=== PATIENT | male | born 1960 | race Caucasian/White ===

== ENCOUNTER 2017-11-11 11:50 | Inpatient (IN) | payer OTHER ==
[~2017-11-11] VITALS: Ht 180.3 cm; Wt 110.7 kg
[2017-11-11 15:39] LABS: HEMATOCRIT 43.9 % (38.0-50.0); HEMOGLOBIN 15.2 G/DL (12.5-16.6); MCH 28.7 PG (29.0-34.0); MCHC 34.6 G/DL (30.0-36.0); MCV 82.8 FL (86-99); PLATELET COUNT 219 K/uL (156-360); RBC DIS.WIDTH-CV 12.5 % (11.8-14.6); RBC DIS.WIDTH-SD 37.7 % (39-53); WHITE BLOOD COUNT 13.9 K/uL (4.1-10.2)
[2017-11-11 15:49] LABS: CHLORIDE 105 mEq/L (99-109); POTASSIUM 3.6 mEq/L (3.7-5.4); SODIUM 140 mEq/L (136-147)
[2017-11-11 15:52] LABS: GLUCOSE 128 mg/dL (70-99); TOTAL PROTEIN 7.8 g/dL (6.4-8.3)
[2017-11-11 15:53] LABS: TOTAL BILIRUBIN 0.7 mg/dL (0.0-1.0)
[2017-11-11 15:54] LABS: SERUM ETHYL ALCOHOL < 10 mg/dL
[2017-11-11 15:55] LABS: ALKALINE PHOSPHATASE 57 IU/L (3-129); CREATININE 1.3 mg/dL (0.6-1.3); GFR ESTIMATE (CALCULATED) > 59 mL/min/ (58.99-99999)
[2017-11-11 15:56] LABS: APPEARANCE CLEAR ((CLEAR)); BILIRUBIN NEGATIVE; BLOOD MODERATE; COLOR YELLOW ((YELLOW)); GLUCOSE (STRIP) NEGATIVE; KETONES NEGATIVE; LEUKOCYTES NEGATIVE; NITRITE NEGATIVE; PROTEIN (STRIP) 100; SPECIFIC GRAVITY 1.018 (1.000-1.030); UROBILINOGEN 0.2 MG/DL (0.2-1.0)
[2017-11-11 15:56] LABS: UREA NITROGEN (BUN) 13 mg/dL (9-23)
[2017-11-11 15:57] LABS: AST (GOT) 19 IU/L (2-34)
[2017-11-11 15:58] LABS: ALT (GPT) 26 IU/L (3-49)
[2017-11-11 16:00] LABS: BACTERIA NONE SEEN /HPF; EPITHELIAL CELLS RARE /HPF; MUCUS TRACE /LPF; RED BLOOD CELLS 15-20 /HPF (0-5); WHITE BLOOD CELLS 0-5 /HPF (0-5)
[2017-11-11] MEDS ORDERED: ATARAX,VISTARIL25 MG PO (16:10)
[2017-11-11] MEDS ORDERED: LITHIUM CARBON300 M2 PO (16:12)
[2017-11-11] MEDS ORDERED: LEVOTHYROXINE25 MCG PO (16:13)
[2017-11-11] MEDS ORDERED: OLANZAPINE5 MG PO (16:18)
[2017-11-11] MEDS ORDERED: TRAZODONE HCL50 MG PO (16:19)
[2017-11-11 16:48] VITALS: BP 151/93
[2017-11-11 16:54] VITALS: BP 151/93
[2017-11-11 19:24] LABS: AMPHETAMINE NEGATIVE (500 ng/mL); BARBITURATES NEGATIVE (200 ng/mL); BENZODIAZEPINES PRESUMPTIVE POSITIVE (150 ng/mL); BUPRENORPHINE NEGATIVE (10 ng/mL); COCAINE NEGATIVE (150 ng/mL); METHADONE NEGATIVE (200 ng/mL); METHAMPHETAMINE NEGATIVE (500 ng/mL); OPIATES (MORPHINE) NEGATIVE (100 ng/mL); OXYCODONE NEGATIVE (100 ng/mL); PHENCYCLIDINE NEGATIVE (25 ng/mL); PROPOXYPHENE NEGATIVE (300 ng/mL); THC CANNABINOIDS NEGATIVE (50 ng/mL); TRICYCLIC ANTIDEPRESSANTS NEGATIVE (300 ng/mL)
[2017-11-11 19:54] LABS: BENZODIAZEPINES, URINE SCREEN Negative (200 ng/mL)
[2017-11-12 07:42] VITALS: BP 147/72
[2017-11-12 15:17] VITALS: BP 132/72
[2017-11-13 07:35] VITALS: BP 117/67
[2017-11-13 15:18] VITALS: BP 129/66
[2017-11-14 07:36] VITALS: BP 135/87
[2017-11-14 15:16] VITALS: BP 127/82
[2017-11-15 09:23] VITALS: BP 146/81
[2017-11-15 15:24] VITALS: BP 120/68
[2017-11-16 08:10] VITALS: BP 128/75
[2017-11-16 15:42] VITALS: BP 117/61
[2017-11-17 07:52] VITALS: BP 125/69
[2017-11-17] MEDS ORDERED: ZYPREXA15 MG PO (09:10)
[2017-11-17] MEDS ORDERED: TRAZODONE HCL50 MG PO (09:11)
== END 2017-11-17 12:11 | disposition home or self-care (01) | DRG 885 ==
LOC: EME 11:50 → EDOF 15:53 → 1WEST 15:53 → ENRESERV 16:26 → 1WEST 16:42
PROVIDERS: Emergency Medicine
DX: F23 Brief psychotic disorder (principal); F31.5 Bipolar disorder, current episode depressed, severe, with psychotic features; E03.9 Hypothyroidism, unspecified; F31.9 Bipolar disorder, unspecified; Z91.19 Patient's noncompliance with other medical treatment and regimen
CPT/HCPCS: 80053; 80178; 81003; 84999; 85027; 97150 GO; 97165 GO; 99211 TC; 99281; 99285; G0480; Q0177